=== PATIENT | female | born 1980 ===

== ENCOUNTER 2017-07-26 18:01 | Observation (INO) | payer OTHER ==
[2017-07-26] MEDS ORDERED: Albuterol 0.083% Inhal Sol (2.5 mg/3 mL) UD INH STA ×2 (18:34→21:26)
--- NOTE | 2017-07-26 18:37 | ED PDOC ---
HPI: Chest Pain Chief Complaint (Provider): chest pain History Per: Patient (36 y/o female 1 week here for evaluation of chest pressure and sob worse with laying flat. Denies any cough/fevers/chills. No h/o asthma. Is currently not able to breast feed . ), Other (PMD: [facility]// aerobics instructor: Dr. Carson) <Alo Carlisle - Last Filed: 07/26/17 20:03> <Alissa Richardson - Last Filed: 07/26/17 21:59> Time Seen by Provider: 07/26/17 18:35 Chief Complaint (Nursing): Chest Pain Supervising Attending Note - Supervising Attending Note The Documented history was done by the: Physician Disability Program Navigator, Attending Physician The documented physical exam was done by the: Physician Disability Program Navigator, Attending Physician - Attestation: I have personally seen and examined this patient.: Yes I have fully participated in the care of the patient.: Yes I have reviewed all pertinent clinical information: Yes <Alissa Richardson - Last Filed: 07/26/17 21:59> Past Medical History Reviewed: Historical Data, Nursing Documentation, Vital Signs - Family History Family History: States: No Known Family Hx <Alo Carlisle - Last Filed: 07/26/17 20:03> <Alissa Richardson - Last Filed: 07/26/17 21:59> Vital Signs: Last Vital Signs Temp 98.8 F 07/26/17 18:14 Pulse 62 07/26/17 19:05 Resp 19 07/26/17 18:14 BP 150/88 07/26/17 18:14 Pulse Ox 98 07/26/17 20:57 - Allergies Allergies/Adverse Reactions: Allergies Allergy/AdvReac Type Severity Reaction Status Date / Time No Known Allergies Allergy Verified 07/26/17 18:33 Review of Systems ROS Statement: Except As Marked, All Systems Reviewed And Found Negative Cardiovascular: Positive for: Chest Pain Respiratory: Positive for: Shortness of Breath <Alo Carlisle - Last Filed: 07/26/17 20:03> Physical Exam - Reviewed Nursing Documentation Reviewed: Yes Vital Signs Reviewed: Yes - Physical Exam Appears: Positive for: Well, Non-toxic, No Acute Distress Head Exam: Positive for: ATRAUMATIC, NORMAL INSPECTION, NORMOCEPHALIC Skin: Positive for: Normal Color, Warm, DRY Eye Exam: Positive for: EOMI, Normal appearance, PERRL ENT: Positive for: Normal ENT Inspection Neck: Positive for: Normal, Painless ROM Cardiovascular/Chest: Positive for: Regular Rate, Rhythm Respiratory: Positive for: CNT, Normal Breath Sounds Gastrointestinal/Abdominal: Positive for: Normal Exam, Bowel Sounds, Soft Back: Positive for: Normal Inspection Extremity: Positive for: Normal ROM Neurologic/Psych: Positive for: Alert, Oriented <Alo Carlisle - Last Filed: 07/26/17 20:03> - Laboratory Results Result Diagrams: 07/26/17 18:52 07/26/17 18:52 Urine POC: Negative - ECG ECG Rhythm: Positive for: Sinus Bradycardia (sinus bradycardia 59bpm; no ectopy no acute changes) O2 Sat by Pulse Oximetry: 98 <Alo Carlisle - Last Filed: 07/26/17 20:03> - Laboratory Results Result Diagrams: 07/26/17 18:52 07/26/17 18:52 <Alissa Richardson - Last Filed: 07/26/17 21:59> - Progress ED Course And Treament: CXR: ? CARDIOMEGALY reviewed with Dr. Dylan sierra without relief. D-dimer elevated; pro-bnp elevated. CTA of chest ordered. (Alo Carlisle) Disposition - Patient ED Disposition Is Patient to be Admitted: Transfer of Care - Disposition Disposition: Transfer of Care Disposition Time: 20:03 Patient Signed Over To: Ynes Chávez Handoff Comments: CTA chest pending/admission <Alo Carlisle - Last Filed: 07/26/17 20:03> <Alissa Richardson - Last Filed: 07/26/17 21:59> - Clinical Impression Clinical Impression: CHF (congestive heart failure), Pleural effusion - Disposition Condition: STABLE
[2017-07-26] MEDS ORDERED: Albuterol 0.083% Inhal Sol (2.5 mg/3 mL) UD ONE ×2 (18:53→21:31)
[2017-07-26 18:55] LABS: BASO # 0.1 K/uL (0.0-0.2); BASO % 0.9 % (0.0-2.0); EOS # 0.5 K/uL (0.0-0.7); EOS % 8.5 % (0.0-4.0); HEMATOCRIT 36.3 % (34.0-47.0); LYMPH # 1.2 K/uL (1.0-4.3); LYMPH % 18.8 % (20.0-40.0); MEAN CELL VOLUME 95.3 fl (81.0-99.0); MEAN CORPUSCULAR HEMOGLOBIN 31.3 pg (27.0-31.0); MEAN CORPUSCULAR HGB CONC 32.9 g/dL (33.0-37.0); MEAN PLATELET VOLUME 9.4 fl (7.2-11.7); MONO # 0.5 K/uL (0.0-0.8); MONO % 7.4 % (0.0-10.0); NEUT # 4.1 K/uL (1.8-7.0); NEUT % 64.4 % (50.0-75.0); NRBC % 0.1 % (0.0-0.0); RED CELL DISTRIBUTION WIDTH 14.7 % (11.5-14.5); WHITE BLOOD COUNT 6.4 K/uL (4.8-10.8)
[2017-07-26 19:07] LABS: ALKALINE PHOSPHATASE 115 U/L (38-126); ALT/SGPT 47 U/L (9-52); AST/SGOT 38 U/L (14-36); BILIRUBIN,TOTAL 0.5 mg/dl (0.2-1.3); BLOOD UREA NITROGEN 8 mg/dl (7-17); CALCIUM 8.6 mg/dL (8.4-10.2); CARBON DIOXIDE 23 mmol/L (22-30); CHLORIDE 109 mmol/L (98-107); GFR AFRICAN-AMERICAN > 60; GLUCOSE,RANDOM 82 mg/dL (65-105); POTASSIUM 3.9 MMOL/L (3.6-5.0); SODIUM 140 mmol/l (132-148); TOTAL PROTEIN 5.9 G/DL (6.3-8.2)
[2017-07-26] MEDS ORDERED: Sodium Chloride 0.9% 50 ML IV ONE (19:51)
[2017-07-26] MEDS ORDERED: Iodixanol 320 MG/ML 100 ML BOTTLE IV ONE (19:51)
--- NOTE | 2017-07-26 20:55 | ED PDOC ---
- Laboratory Results Result Diagrams: 07/26/17 18:52 07/26/17 18:52 Urine POC: Negative - ECG O2 Sat by Pulse Oximetry: 98 Medical Decision Making Medical Decision Making: CT - Bilateral effusions, no abnormalities of the heart, no PE Disposition - Clinical Impression Clinical Impression: CHF (congestive heart failure), Pleural effusion - POA Present On Arrival: None - Disposition Disposition: Hospitalized as Observation Patient Disposition Time: 20:54 Condition: STABLE
[2017-07-26] MEDS ORDERED: Albuterol 0.083% Inhal Sol (2.5 mg/3 mL) UD INH PRN (22:15)
[2017-07-27 05:05] LABS: ALB/GLOB RATIO 1.1 (1.0-2.1); ALKALINE PHOSPHATASE 102 U/L (38-126); ALT/SGPT 43 U/L (9-52); AST/SGOT 32 U/L (14-36); BILIRUBIN,TOTAL 0.5 mg/dl (0.2-1.3); BLOOD UREA NITROGEN 7 mg/dl (7-17); CALCIUM 8.4 mg/dL (8.4-10.2); CARBON DIOXIDE 23 mmol/L (22-30); CHLORIDE 108 mmol/L (98-107); GFR AFRICAN-AMERICAN > 60; GLUCOSE,RANDOM 76 mg/dL (65-105); POTASSIUM 3.7 MMOL/L (3.6-5.0); SODIUM 139 mmol/l (132-148); TOTAL PROTEIN 5.4 G/DL (6.3-8.2)
[2017-07-27] MEDS ORDERED: Albuterol 0.083% Inhal Sol (2.5 mg/3 mL) UD ONE (05:28)
--- NOTE | 2017-07-27 08:43 | CP.PCM.HP ---
History of Present Illness - History of Present Illness History of Present Illness: pt admitted for chf and pleural effusion after giving 1 wk ago at [facility], had normal /delivery up to this point. denies med/ surg hx. had pain/dyspnea which brought her to hospital. at present w/o pain, dyspnea. pending echo/cardio eval this am. sb upper 50s Present on Admission - Present on Admission Any Indicators Present on Admission: No Review of Systems - Cardiovascular Cardiovascular: As Per HPI, Chest Pain, Dyspnea on Exertion Past Patient History - Infectious Disease Hx of Infectious Diseases: None - Past Social History Smoking Status: Unknown If Ever Smoked - PSYCHIATRIC Hx Substance Use: No Meds Allergies/Adverse Reactions: Allergies Allergy/AdvReac Type Severity Reaction Status Date / Time No Known Allergies Allergy Verified 07/26/17 18:33 Physical Exam - Constitutional Appears: Well, Non-toxic, No Acute Distress - Head Exam Head Exam: ATRAUMATIC, NORMAL INSPECTION, NORMOCEPHALIC - Eye Exam Eye Exam: EOMI, Normal appearance, PERRL Pupil Exam: NORMAL ACCOMODATION, PERRL - ENT Exam ENT Exam: Mucous Membranes Moist, Normal Exam - Neck Exam Neck exam: Positive for: Normal Inspection - Respiratory Exam Respiratory Exam: Clear to Auscultation Bilateral, NORMAL BREATHING PATTERN - Cardiovascular Exam Cardiovascular Exam: REGULAR RHYTHM, RRR, +S1, +S2 - GI/Abdominal Exam GI & Abdominal Exam: Normal Bowel Sounds, Soft. absent: Tenderness - Extremities Exam Extremities exam: Positive for: full ROM, normal capillary refill, normal inspection, pedal pulses present - Back Exam Back exam: FULL ROM, NORMAL INSPECTION - Neurological Exam Neurological exam: Alert, CN II-XII Intact, Normal Gait, Oriented x3, Reflexes Normal - Psychiatric Exam Psychiatric exam: Normal Affect, Normal Mood - Skin Skin Exam: Dry, Intact, Normal Color, Warm Results - Vital Signs Recent Vital Signs: Last Vital Signs Temp 98.3 F 07/27/17 06:04 Pulse 60 07/27/17 06:04 Resp 16 07/27/17 06:04 BP 134/85 07/27/17 06:04 Pulse Ox 98 07/27/17 06:04 - Labs Result Diagrams: 07/27/17 04:30 07/27/17 04:30 Labs: Laboratory Results - last 24 hr 07/26/17 07/27/17 07/27/17 21:38 04:30 04:30 WBC 6.0 RBC 3.60 L Hgb 11.5 L Hct 33.9 L MCV 94.4 MCH 32.1 H MCHC 34.0 RDW 14.3 Plt Count 197 MPV 9.2 Lymph % (Auto) 21.7 [place] % (Auto) 7.7 Eos % (Auto) 8.6 H Baso % (Auto) 0.9 Lymph # 1.3 [place] # 0.5 Eos # 0.5 Baso # 0.1 Sodium 139 Potassium 3.7 Chloride 108 H Carbon Dioxide 23 Anion Gap 12 BUN 7 Creatinine 0.7 Est GFR ( Amer) > 60 Est GFR (Non-Af Amer) > 60 Random Glucose 76 Calcium 8.4 Total Bilirubin 0.5 AST 32 ALT 43 Alkaline Phosphatase 102 Troponin I < 0.0120 < 0.0120 NT-Pro-B Natriuret Pep 1360 H Total Protein 5.4 L Albumin 2.8 L Globulin 2.6 Albumin/Globulin Ratio 1.1 Assessment & Plan (1) CHF (congestive heart failure) Assessment and Plan: echo, cardio tele obs admission o2 prn trops nad probnp this am noted Status: Acute (2) Pleural effusion Status: Acute Decision To Admit - Pt Status Changed To: Hospital Disposition Of: Observation - . Bed Request Type: Telemetry Admitting Physician: Emily De Jesus
--- NOTE | 2017-07-27 08:48 | RAD ---
HISTORY: chest pain COMPARISON: Subsequent chest CT 07/26/2017 FINDINGS: LUNGS: Calcified granulomas in the left mid left lung zone laterally confirmed by aforementioned subsequent CT examination. No acute infiltrate identified bilaterally. PLEURA: No significant pleural effusion identified, no pneumothorax apparent. CARDIOVASCULAR: Cardiac silhouette appears prominent, possibly magnified by technique. Intrinsic enlargement not completely excluded. Clinically correlate. OSSEOUS STRUCTURES: No significant abnormalities. VISUALIZED UPPER ABDOMEN: Normal. OTHER FINDINGS: None. IMPRESSION: Prominent cardiac silhouette may be artifactual. Clinically correlate. No acute infiltrate or pleural effusion identified bilaterally.
--- NOTE | 2017-07-27 10:14 | CT ---
PROCEDURE: CT Chest with contrast (Pulmonary Angiogram) HISTORY: sob COMPARISON: None available. TECHNIQUE: Axial computed tomography images were obtained of the chest in the pulmonary arterial phase of enhancement. Coronal and sagittal reformatted images were created and reviewed. Intravenous contrast dose: Visipaque 320, 90 cc Radiation dose: Total exam DLP = 345 mGy-cm. This CT exam was performed using one or more of the following dose reduction techniques: Automated exposure control, adjustment of the mA and/or kV according to patient size, and/or use of iterative reconstruction technique. FINDINGS: PULMONARY ARTERIES: Unremarkable. No pulmonary embolism. AORTA: No acute findings. No thoracic aortic aneurysm. LUNGS: Linear atelectasis or fibrosis seen at the left lower lobe base. No nodule, mass or pulmonary consolidation. Central airways appear clear. PLEURAL SPACES: Unremarkable. No effusion or pneuomothorax. HEART: Unremarkable. No cardiomegaly. No significant pericardial effusion. LYMPH NODES: No lymphadenopathy. BONES, CHEST WALL: Bilateral subglandular breast implantation. No fracture or destructive lesion OTHER FINDINGS: Unremarkable. IMPRESSION: Unremarkable CT pulmonary angiogram. No pulmonary embolus. Minimal linear atelectasis or fibrosis is seen at the left lower lobe base. Incidental note is made of bilateral subglandular breast implantation.
--- NOTE | 2017-07-27 10:22 | CP.PCM.DIS ---
Provider - Provider Date of Admission: 07/26/17 20:55 Attending physician: Emily De Jesus MD Time Spent in preparation of Discharge (in minutes): 15 Diagnosis - Discharge Diagnosis (1) CHF (congestive heart failure) Status: Acute (2) Pleural effusion Status: Acute Hospital Course - Lab Results Lab Results: Most Recent Lab Values WBC 6.0 K/uL (4.8-10.8) 07/27/17 04:30 RBC 3.60 Mil/uL (3.80-5.20) L 07/27/17 04:30 Hgb 11.5 g/dL (12.0-16.0) L 07/27/17 04:30 Hct 33.9 % (34.0-47.0) L 07/27/17 04:30 MCV 94.4 fl (81.0-99.0) 07/27/17 04:30 MCH 32.1 pg (27.0-31.0) H 07/27/17 04:30 MCHC 34.0 g/dL (33.0-37.0) 07/27/17 04:30 RDW 14.3 % (11.5-14.5) 07/27/17 04:30 Plt Count 197 K/uL (130-400) 07/27/17 04:30 MPV 9.2 fl (7.2-11.7) 07/27/17 04:30 Gran % Cancelled 07/27/17 04:30 Neut % (Auto) 64.4 % (50.0-75.0) 07/26/17 18:52 Lymph % (Auto) 21.7 % (20.0-40.0) 07/27/17 04:30 [place] % (Auto) 7.7 % (0.0-10.0) 07/27/17 04:30 Eos % (Auto) 8.6 % (0.0-4.0) H 07/27/17 04:30 Baso % (Auto) 0.9 % (0.0-2.0) 07/27/17 04:30 Gran # Cancelled 07/27/17 04:30 Neut # 4.1 K/uL (1.8-7.0) 07/26/17 18:52 Lymph # 1.3 K/uL (1.0-4.3) 07/27/17 04:30 [place] # 0.5 K/uL (0.0-0.8) 07/27/17 04:30 Eos # 0.5 K/uL (0.0-0.7) 07/27/17 04:30 Baso # 0.1 K/uL (0.0-0.2) 07/27/17 04:30 D-Dimer, Quantitative 1116 ng/mlDDU (0-230) H 07/26/17 18:52 Sodium 139 mmol/l (132-148) 07/27/17 04:30 Potassium 3.7 MMOL/L (3.6-5.0) 07/27/17 04:30 Chloride 108 mmol/L (98-107) H 07/27/17 04:30 Carbon Dioxide 23 mmol/L (22-30) 07/27/17 04:30 Anion Gap 12 (10-20) 07/27/17 04:30 BUN 7 mg/dl (7-17) 07/27/17 04:30 Creatinine 0.7 mg/dL (0.7-1.2) 07/27/17 04:30 Est GFR ( Amer) > 60 07/27/17 04:30 Est GFR (Non-Af Amer) > 60 07/27/17 04:30 Random Glucose 76 mg/dL (65-105) 07/27/17 04:30 Calcium 8.4 mg/dL (8.4-10.2) 07/27/17 04:30 Total Bilirubin 0.5 mg/dl (0.2-1.3) 07/27/17 04:30 AST 32 U/L (14-36) 07/27/17 04:30 ALT 43 U/L (9-52) 07/27/17 04:30 Alkaline Phosphatase 102 U/L (38-126) 07/27/17 04:30 Troponin I < 0.0120 ng/mL (0.00-0.120) 07/27/17 04:30 NT-Pro-B Natriuret Pep 1360 pg/ml (0-450) H 07/27/17 04:30 Total Protein 5.4 G/DL (6.3-8.2) L 07/27/17 04:30 Albumin 2.8 g/dL (3.5-5.0) L 07/27/17 04:30 Globulin 2.6 gm/dL (2.2-3.9) 07/27/17 04:30 Albumin/Globulin Ratio 1.1 (1.0-2.1) 07/27/17 04:30 TSH 3rd Generation 2.88 mIU/ML (0.46-4.68) 07/26/17 20:01 Discharge Exam - Head Exam Head Exam: ATRAUMATIC, NORMAL INSPECTION, NORMOCEPHALIC Discharge Plan - Follow Up Plan Condition: STABLE Disposition: HOME/ ROUTINE Additional Instructions: cleared by cardio for dc. f/u rmg 2 days, rted prn, meds per med rec final dx-chf post
--- NOTE | 2017-07-27 10:37 | CP.PCM.CON ---
History of Present Illness - History of Present Illness History of Present Illness: I was asked to see patient by Phoenix Nagy APN and Dr. De Jesus. Patient is a 36 year old female with no PMH post one week who presents with chest pain and dyspnea. Patient had a normal delivery and no complications. The patient developed chest pain and dyspnea while at home. She states she had lower extremity edema. The patient was noted to have wheezing and questionable pleural effusions. The patient was given bronchodilator therapy. She feels better at the moment. Review of Systems - Constitutional Constitutional: absent: As Per HPI, Anorexia, Chills, Daytime Sleepiness, Excessive Sweating, Fatigue, Fever, Frequent Falls, Headache, Increased Appetite , Lethargy, Malaise, Night Sweats, Snoring, Sleep Apnea, Weight Gain, Weight Loss, Weakness, Other - EENT Eyes: absent: As Per HPI, Blind Spots, Blurred Vision, Change in Vision, Decreased Night Vision, Diplopia, Discharge, Dry Eye, Exophthalmos, Floaters, Irritation, Itchy Eyes, Loss of Peripheral Vision, Pain, Photophobia, Requires Corrective Lenses, Sees Flashes, Spots in Vision, Tunnel Vision, Other Visual Disturbances, Loss of Vision, Other Ears: absent: As Per HPI, Decreased Hearing, Ear Discharge, Ear Pain, Tinnitus, Abnormal Hearing, Disequilibrium, Dizziness, Other Nose/Mouth/Throat: absent: As Per HPI, Epistaxis, Nasal Congestion, Nasal Discharge, Nasal Obstruction, Nasal Trauma, Nose Pain, Post Nasal Drip, Sinus Pain, Sinus Pressure, Bleeding Gums, Change in Voice, Dental Pain, Dry Mouth, Dysphagia, Halitosis, Hoarsness, Lip Swelling, Mouth Lesions, Mouth Pain, Odynophagia, Sore Throat, Throat Swelling, Tongue Swelling, Facial Pain, Neck Pain, Neck Mass, Other - Cardiovascular Cardiovascular: absent: As Per HPI, Acrocyanosis, Chest Pain, Chest Pain at Rest , Chest Pain with Activity, Claudication, Diaphoresis, Dyspnea, Dyspnea on Exertion, Edema, Irregular Heart Rhythm, Pain Radiating to Arm/Neck/Jaw, Leg Edema, Leg Ulcers, Lightheadedness, Orthopnea, Palpitations, Paroxysmal Nocturnal Dyspnea, Pedal Edema, Radiating Pain, Rapid Heart Rate, Slow Heart Rate, Syncope, Other - Respiratory Respiratory: Dyspnea - Gastrointestinal Gastrointestinal: absent: As Per HPI, Abdominal Pain, Belching, Bloating, Change in Bowel Habits, Change in Stool Character, Coffee Ground Emesis, Constipation, Cramping, Diarrhea, Dyspepsia, Dysphagia, Early Satiety, Excessive Flatus, Fecal Incontinence, Heartburn, Hematemesis, Hematochezia, Loose Stools, Melena, Nausea, Odynophagia, Temesmus, Vomiting, Other - Genitourinary Genitourinary: absent: As Per HPI, Change in Urinary Stream, Difficulty Urinating, Dysuria, Flank Pain, Hematuria, Pyuria, Nocturia, Urinary Incontinence, Urinary Frequency, Urinary Hesitance, Urinary Urgency, Voiding Freq/Small Amts, Freq UTI, Hx Renal/Bladder Calculi, Hx /Renal Surgery, Bladder Distension, Other - Musculoskeletal Musculoskeletal: absent: As Per HPI, Abnormal Gait, Arthralgias, Atrophy, Back Pain, Deformity, Joint Swelling, Limited Range of Motion, Loss of Height, Muscle Cramps, Muscle Weakness, Myalgias, Neck Pain, Numbness, Radiating Pain into Limb, Stiffness, Tingling, Other - Integumentary Integumentary: absent: As Per HPI, Acne, Alopecia, Bleeding Lesions, Change in Hair, Change in Nails, Change in Pigmentation, Changing Lesions, Dry Skin, Erythema, Furuncle, Hirsutism, Lesions, New Lesions, Non-Healing Lesions, Photosensitivity, Pruritus, Rash, Skin Pain, Skin Ulcer, Sores, Striae, Swelling , Unusual Bruising, Wounds, Jaundice, Other - Neurological Neurological: absent: As Per HPI, Abnormal Gait, Abnormal Hearing, Abnormal Movements, Abnormal Speech, Behavioral Changes, Burning Sensations, Confusion, Convulsions, Disequilibrium, Dizziness, Numbness, Focal Weakness, Frequent Falls , Headaches, Lack of Coordination, Loss of Vision, Memory Loss, Paresthesias, Radicular Pain, Restless Legs, Sensory Deficit, Syncope, Tingling, Tremor, Vertigo, Weakness, Other Visual Disturbances, Other - Psychiatric Psychiatric: absent: As Per HPI, Abnormal Sleep Pattern, Anhedonia, Anxiety, Auditory Hallucinations, Behavioral Changes, Change in Appetite, Change in Libido, Confusion, Depression, Difficulty Concentrating, Hallucinations, Homicidal Ideation, Hopelessness, Irritability, Memory Loss, Mood Swings, Panic Attacks, Paranoia, Suicidal Ideation, Visual Hallucinations, Tactile Hallucinations, Other - Endocrine Endocrine: absent: As Per HPI, Change in Body Appearance, Change in Libido, Cold Intolorance, Deepening of Voice, Excessive Sweating, Fatigue, Flushing, Heat Intolorance, Increase in Ring/Shoe/Hat Size, Palpitations, Polydipsia, Polyphagia, Polyuria, Other - Hematologic/Lymphatic Hematologic: absent: As Per HPI, Easy Bleeding, Easy Bruising, Lymphadenopathy, Other Past Patient History - Infectious Disease Hx of Infectious Diseases: None - Past Social History Smoking Status: Unknown If Ever Smoked - PSYCHIATRIC Hx Substance Use: No Meds Allergies/Adverse Reactions: Allergies Allergy/AdvReac Type Severity Reaction Status Date / Time No Known Allergies Allergy Verified 07/26/17 18:33 - Medications Medications: Current Medications Albuterol Sulfate (Albuterol 0.083% Inhal Blanche (2.5 Mg/3 Ml) Ud) 2.5 mg INH RQ6 PRN PRN Reason: Shortness of Breath Last Admin: 07/27/17 05:35 Dose: 2.5 mg Physical Exam - Constitutional Appears: Non-toxic - Head Exam Head Exam: NORMAL INSPECTION - Eye Exam Eye Exam: Normal appearance - ENT Exam ENT Exam: Mucous Membranes Moist - Neck Exam Neck exam: Positive for: Full Rom - Respiratory Exam Respiratory Exam: NORMAL BREATHING PATTERN - Cardiovascular Exam Cardiovascular Exam: REGULAR RHYTHM - GI/Abdominal Exam GI & Abdominal Exam: Normal Bowel Sounds - Rectal Exam Rectal Exam: Deferred - Extremities Exam Extremities exam: Positive for: pedal edema - Back Exam Back exam: NORMAL INSPECTION - Neurological Exam Neurological exam: Alert, Oriented x3 - Psychiatric Exam Psychiatric exam: Normal Affect - Skin Skin Exam: Normal Color Results - Vital Signs Recent Vital Signs: Last Vital Signs Temp 98.3 F 07/27/17 06:04 Pulse 60 07/27/17 06:04 Resp 16 07/27/17 06:04 BP 134/85 07/27/17 06:04 Pulse Ox 98 07/27/17 06:04 - Labs Result Diagrams: 07/27/17 04:05 07/27/17 04:30 Labs: Laboratory Results - last 24 hr 07/26/17 07/27/17 07/27/17 21:38 04:30 04:30 WBC 6.0 RBC 3.60 L Hgb 11.5 L Hct 33.9 L MCV 94.4 MCH 32.1 H MCHC 34.0 RDW 14.3 Plt Count 197 MPV 9.2 Lymph % (Auto) 21.7 [place] % (Auto) 7.7 Eos % (Auto) 8.6 H Baso % (Auto) 0.9 Lymph # 1.3 [place] # 0.5 Eos # 0.5 Baso # 0.1 Sodium 139 Potassium 3.7 Chloride 108 H Carbon Dioxide 23 Anion Gap 12 BUN 7 Creatinine 0.7 Est GFR ( Amer) > 60 Est GFR (Non-Af Amer) > 60 Random Glucose 76 Calcium 8.4 Total Bilirubin 0.5 AST 32 ALT 43 Alkaline Phosphatase 102 Troponin I < 0.0120 < 0.0120 NT-Pro-B Natriuret Pep 1360 H Total Protein 5.4 L Albumin 2.8 L Globulin 2.6 Albumin/Globulin Ratio 1.1 - EKG Data EKG Interpreted by: Myself EKG shows normal: Sinus rhythm Assessment & Plan (1) CHF (congestive heart failure) Assessment and Plan: I reviewed the echocardiogram. Left ventricular function is normal. There is no contraindication to discharge. The patient will have outpatient follow up. Status: Acute (2) Pleural effusion Assessment and Plan: possibly related to recent delivery. no evidence of cardiomyopathy Status: Acute
[2017-07-27 11:22] VITALS: BP 126/78; PULSE 62; RESP 18; TEMP 98; O2SAT 99
--- NOTE | 2017-07-27 21:16 | CARD ---
APPROVED REPORT EXAM: Two-dimensional and M-mode echocardiogram with Doppler and color Doppler. Other Information Quality : GoodRhythm : NSR INDICATION Pleural Effusion Chest Pain 2D DIMENSIONS IVSd1.19 (0.7-1.1cm)LVDd4.81 (3.9-5.9cm) LVOT Diameter2.02 (1.8-2.4cm)PWd0.98 (0.7-1.1cm) IVSs1.41 (0.8-1.2cm)LVDs3.19 (2.5-4.0cm) FS (%) 33.6 %PWs1.43 (0.8-1.2cm) LVEF (%)55.0 (>50%) M-Mode DIMENSIONS Left Atrium (MM)3.97 (2.5-4.0cm)IVSd1.00 (0.7-1.1cm) Aortic Root2.85 (2.2-3.7cm)LVDd5.32 (4.0-5.6cm) Aortic Cusp Exc.1.68 (1.5-2.0cm)PWd1.03 (0.7-1.1cm) IVSs1.47 cmFS (%) 40 % LVDs3.21 (2.0-3.8cm)PWs1.44 cm Mitral Valve MV E Ebqnnqyi98.7cm/sMV DECEL [id number] A Odrrgvsi33.8cm/s MV BTN81uiD/A ratio1.6MVA (PHT)3.90cm2 TDI Lateral E' Peak V11.41cm/sMedial E' Peak V10.67cm/sE/Lateral E'8.2 E/Medial E'8.8 Pulmonary Valve PV Peak Pbtndefg019.7cm/s Tricuspid Valve TR Peak Txmameno259ll/sRAP [id number] Peak Gr.16mmHg [id number] LEFT VENTRICLE The left ventricle is normal size. There is normal left ventricular wall thickness. The left ventricular function is normal. The left ventricular ejection fraction is within the normal range. There is normal LV segmental wall motion. The left ventricular diastolic function is normal. RIGHT VENTRICLE The right ventricle is normal size. There is normal right ventricular wall thickness. The right ventricular systolic function is normal. ATRIA The left atrium size is normal. The right atrium size is normal. AORTIC VALVE The aortic valve is mildly thickened. There is trace aortic regurgitation. There is no aortic valvular stenosis. MITRAL VALVE The mitral valve is mildly thickened. There is no mitral valve stenosis. Mitral regurgitation is mild. TRICUSPID VALVE The tricuspid valve is normal in structure and function. There is no tricuspid valve regurgitation noted. PULMONIC VALVE The pulmonary valve is normal in structure There is trace to mild pulmonic valvular regurgitation. GREAT VESSELS The aortic root is normal in size. The IVC collapses <50% with inspiration. PERICARDIAL EFFUSION There is a small loculated posterior pericardial effusion. <Conclusion> The left ventricle is normal size. There is normal left ventricular wall thickness. The left ventricular function is normal. The left ventricular ejection fraction is within the normal range. There is normal LV segmental wall motion. The left ventricular diastolic function is normal. Mitral regurgitation is mild.
--- NOTE | 2017-07-27 21:50 | CARD ---
APPROVED REPORT EKG Measurement Heart [id number] <Conclusion> Sinus bradycardia Cannot rule out Anterior infarct, age undetermined Abnormal ECG
[2017-07-27 21:54] LABS: HEMATOCRIT 33.9 % (34.0-47.0); MEAN CELL VOLUME 94.4 fl (81.0-99.0); MEAN CORPUSCULAR HEMOGLOBIN 32.1 pg (27.0-31.0)
[2017-07-27 21:55] LABS: BASO # 0.1 K/uL (0.0-0.2); BASO % 0.9 % (0.0-2.0); EOS # 0.5 K/uL (0.0-0.7); EOS % 8.6 % (0.0-4.0); LYMPH # 1.3 K/uL (1.0-4.3); LYMPH % 21.7 % (20.0-40.0); MEAN PLATELET VOLUME 9.2 fl (7.2-11.7); MONO # 0.5 K/uL (0.0-0.8); MONO % 7.7 % (0.0-10.0); NEUT # 3.7 K/uL (1.8-7.0); NEUT % 61.1 % (50.0-75.0); RED CELL DISTRIBUTION WIDTH 14.3 % (11.5-14.5)
== END 2017-07-27 11:00 | disposition home or self-care (01) ==
LOC: H.ER 18:01 → H.ERHOLD 20:55
PROVIDERS: ADMIT Family Medicine; ATTEND Family Medicine
DX: O99.43 Diseases of the circulatory system complicating the puerperium (principal); I50.9 Heart failure, unspecified
CPT/HCPCS: 71010; 71275; 80053; 81025; 83880; 84443; 84484; 85025; 85378; 93005; 93306; 94150; 94640; 99285; G0378; Q9967